=== PATIENT | female | born 1985 | race Caucasian/White ===

== ENCOUNTER 2024-12-03 13:10 | Emergency (ER) | payer OTHER, SELFPAY ==
[2024-12-03 13:14] VITALS: BP 164/93
[2024-12-03 13:26] VITALS: BP 131/82
--- NOTE | 2024-12-03 13:51 | ED.GENMED ---
History of Present Illness
General
Chief Complaint: Headache
Source: patient
Exam Limitations: none
Time Seen by Provider: 12/03/24 13:34
Nursing documentation reviewed up to this point in time: agreed with
History of Present Illness
History of Present Illness:
The patient is a 39-year-old female presenting with a headache that began last Saturday night. The patient describes the headache as throbbing with intermittent sharp pains, starting on the right side and radiating backward. She reports that the
headache has been persistent despite treatment. She initially performed a test, which was negative, and was prescribed a triptan, which was ineffective. She has been taking ibuprofen 800 mg, which only dulls the pain slightly. The headache
has affected her sleep, particularly at night. The patient also experienced transient blurry vision preceding the headache onset, but this resolved. There is no ongoing visual disturbance or vertigo. She has a history of headaches only during a
prior . Upon presentation, vital signs show mild tachycardia.
Review of Systems
Review of Systems
Allergies reviewed?: Yes
All Other Systems: ROS reviewed and negative except as documented in HPI and ROS
Phy Exam
Physical Exam
Physical Exam:
GENERAL: Alert , in no apparent distress
EYE: pupils equal and reactive
NECK: Supple, no significant adenopathy.
ENT: o/p clr, mmm.
CARDIAC: Regular rate and rhythm .
LUNGS: Clear breath sounds bilaterally, no acute respiratory distress, no wheezes/rales/rhonchi
ABDOMEN: Soft, without focal tenderness, no r/g, no cvat
NEUROLOGICAL: Alert and oriented, no focal neuro deficits 5 out of 5 upper and lower extremity strength normal sensation with palpating bilaterally normal finger-nose and [id number].
SKIN: Warm and dry, skin intact.
MUSCULOSKELETAL: No edema, well perfused.
PSYCH: Normal and appropriate interaction.
Course
Orders/Labs/Results
Orders:
Orders
12/03/24 13:48
Electrocardiogram (*1) Stat
Reason for Study: Other
Other Reason for Exam: Headache
CT Head W/o Iv Contrast Urgent
Comment:
Reason For Exam: 8 day VAN, no hx
EKG- Treatment ONCE
0.9% Sodium Chloride 1000 ml [Nss] 1,000 ml IV BOLUS
Dexamethasone Sod Phosphate [Decadron] 10 mg IV NOW STA
Diphenhydramine [Benadryl] 25 mg IV NOW STA
Ketorolac [Toradol] 15 mg IV NOW STA
Metoclopramide [Reglan] 10 mg IV NOW STA
Test Result ONCE
12/03/24 14:26
Complete Blood Count/With Diff Urgent
Comprehensive Metabolic Panel Urgent
HCG, Serum Qualitative Screen Urgent
Lyme Progressive Urgent
Abnormal Lab Results
12/03/24
14:26
MCH 31.7 H pg
(27.0-31.0)
MPV 11.0 H fL
(7.4-10.4)
Absolute Monos (auto) 0.7 H 10^3/uL
(0.1-0.6)
Lymphocytes % 20.0 L %
(20.5-51.1)
Monocytes % 10.1 H %
(1.7-9.3)
Chloride 111 H mmol/L
(98-107)
Glucose 109 H mg/dl
(70-99)
12/03/24 14:26
12/03/24 14:26
Vital Signs
Initial and Last Documented VS:
Initial Vital Signs
Temp Pulse Resp BP Pulse Ox
98.3 F 102 15 164/93 98
12/03/24 13:14 12/03/24 13:14 12/03/24 13:14 12/03/24 13:14 12/03/24 13:14
Last Documented Vital Signs
Temp Pulse Resp BP Pulse Ox
98.3 F 79 16 120/76 99
12/03/24 13:14 12/03/24 14:30 12/03/24 14:30 12/03/24 15:00 12/03/24 15:00
MDM/Problems Addressed
MDM/Problems Addressed:
- Proceed with imaging to rule out any significant intracranial pathology.
- Administer a migraine cocktail including ondansetron and dexamethasone to manage symptoms and reduce recurrence.
- Ensure symptom control and monitor for any adverse developments.
*Pulse Oximetry
SaO2: 97
Oxygen Mode of Delivery: Room air
*Critical Care Note
Total Time (30-74mins, 75-104mins- exclusive of procedures): Not Applicable
ED Attending Note
-
Portions of this chart may have been created with voice recognition software.� Occasional wrong word or��sound alike� substitutions may have occurred due to the inherent limitations of voice recognition software.
Discharge Plan
Departure
Patient Disposition: Home (Routine Discharge)
Date of Disposition: 12/03/24
Time of Disposition: 16:51
Patient with high blood pressure during this ER visit?: No
Condition: Good
Covid-19: Not Applicable
Discharge Problem:
Headache
Instructions: Headache, Adult (DC)
Referrals:
Kimberley Ozuna MD [Family Provider, Family Practice]
Activity Restrictions/Additional Instructions:
You came to the emergency department today with concerns of a headache. Here you had a reassuring workup. Please have close with your primary care doctor and return for any worsening, new or concerning symptoms.
Interventions
Interventions:
*Risk Screen - Suicide Last Done: 12/03/24 13:14
*General Assessment Last Done: 12/03/24 13:14
*Neglect/Abuse Screening Last Done: 12/03/24 13:14
*ED- Fall Risk Assessment Last Done: 12/03/24 13:21
*ED COVID-19 Vaccine History Last Done: 12/03/24 13:14
ED- Neurological Assessment Last Done: 12/03/24 13:22
Discharge Date and Time
Print Language: NAMIBIAN
[2024-12-03] MEDS: NSS 1000 IV (14:29)
[2024-12-03] MEDS: DECADRON 10 MG IV (14:29)
[2024-12-03] MEDS: TORADOL 15 MG IV (14:29)
[2024-12-03 14:30] VITALS: BP 129/91
[2024-12-03] MEDS: BENADRYL 25 MG IV (14:30)
[2024-12-03] MEDS: REGLAN 10 MG IV (14:30)
[2024-12-03 14:36] LABS: % Basophils 0.7 % (0-2); % Eosinophils 2.8 % (0-6); % Immature Granulocytes 0.3 % (0-0.5); % Monocytes 10.1 % (1.7-9.3); % Neutrophils 66.1 % (42.2-75.2); Absolute Basophils 0.1 10^3/uL (0-0.2); Absolute Eosinophils 0.2 10^3/uL (0-0.7); Absolute Lymphocytes 1.4 10^3/uL (1.2-3.4); Absolute Monocytes 0.7 10^3/uL (0.1-0.6); Absolute Neutrophils 4.5 10^3/uL (1.4-6.5); Hematocrit 39.5 % (37.0-47.0); Hemoglobin 13.8 g/dL (12.0-16.0); Mean Corp Hgb Conc. 34.9 g/dL (33.0-37.0); Mean Corpuscular Hgb 31.7 pg (27.0-31.0); Mean Corpuscular Volume 90.6 fL (81.0-99.0); Nucleated Red Blood Cells % 0 %; Platelet Count 229 10^3/uL (130-400); Red Blood Cell Count 4.36 10^6/uL (4.20-5.40); Red Cell Dist. Width 12.3 % (11.5-14.5); White Blood Cell Count 6.7 10^3/uL (4.8-10.8)
[2024-12-03 15:00] VITALS: BP 120/76
[2024-12-03 15:05] LABS: HCG, Serum Qualitative Screen Negative
[2024-12-03 15:11] LABS: ALT (SGPT) 17 U/L (0-35); AST (SGOT) 18 U/L (14-36); Albumin 4.1 g/dl (3.5-5.0); Alkaline Phosphatase 50 U/L (38-126); Blood Urea Nitrogen 12 mg/dl (7-17); Calcium 9.4 mg/dl (8.4-10.2); Carbon Dioxide 23 mmol/L (22-30); Chloride 111 mmol/L (98-107); Glucose 109 mg/dl (70-99); Potassium 4.6 mmol/L (3.5-5.1); Sodium 140 mmol/L (135-145); Total Bilirubin 0.5 mg/dl (0.2-1.3); Total Protein 6.6 g/dl (6.3-8.2); eGFR > 60.00
[2024-12-03 16:00] VITALS: BP 123/67
== END 2024-12-03 17:00 | disposition home or self-care (01) ==
LOC: EMR 13:10
PROVIDERS: Physician Assistant; EMERGENCY PHYSICIAN Emergency Medicine; FAMILY PHYSICIAN Family Medicine
DX: R51.9 Headache, unspecified (principal); R00.0 Tachycardia, unspecified
CPT/HCPCS: 96374; 96375; 96361; 99284; 70450; 80053; 84703; 85025; 86618; 93005